=== PATIENT | female | born 1995 | race Caucasian/White ===

== ENCOUNTER 2019-02-20 16:39 | Outpatient (CLI) | payer OTHER ==
[2019-02-20 22:30] LABS: TRICHOMONAS VAGINALIS DNA NEGATIVE (NEGATIVE)
== END 2019-02-20 23:59 | disposition home or self-care (01) ==
LOC: LAB.R 16:39
PROVIDERS: ATTEND Registered Nurse
DX: Z30.430 Encounter for insertion of intrauterine contraceptive device (principal)
CPT/HCPCS: 87491; 87591; 87661

== ENCOUNTER 2020-04-18 05:47 | Emergency (ER) | payer OTHER ==
[2020-04-18 06:05] LABS: BILIRUBIN,URINE NEGATIVE (NEGATIVE); GLUCOSE, URINE (UA) NEGATIVE (NEGATIVE); KETONES,URINE (UA) NEGATIVE (NEGATIVE); LEUKOCYTE ESTERASE, URINE NEGATIVE (NEGATIVE); NITRITE,URINE NEGATIVE (NEGATIVE); OCCULT BLOOD,URINE MODERATE (NEGATIVE); PH,URINE 5.5 PH (5.0-7.5); PROTEIN,URINE NEGATIVE (NEGATIVE); UROBILINOGEN,URINE 0.2 (NORMAL) E.U./dL (NORMAL)
[2020-04-18 06:06] LABS: CLARITY,URINE CLEAR (CLEAR)
[2020-04-18 06:14] LABS: BACTERIA,URINE Rare /HPF (None Seen); MUCUS,URINE Marked Strands; SQUAMOUS EPITHELIAL CELL,UR MOD Squamous (<= Few)
[2020-04-18] MEDS ORDERED: KETOROLAC 30 MG/ML VIAL IVP STA (06:18)
[2020-04-18] MEDS ORDERED: HYDROmorphone 2 MG/ML VIAL IVP STA (06:22)
[2020-04-18] MEDS ORDERED: ONDANSETRON 4 MG/2 ML VIAL IVP STA (06:23)
[2020-04-18 06:30] LABS: BASOPHILS # (AUTO) 0.1 10^3/uL (0.0-0.1); BASOPHILS % (AUTO) 0.5 %; EOSINOPHILS # (AUTO) 0.1 10^3/uL (0.0-0.7); EOSINOPHILS % (AUTO) 1.2 %; HGB - HEMOGLOBIN 13.7 g/dL (12.0-16.0); LYMPHOCYTES % (AUTO) 19.5 %; MEAN CORPUSCULAR HEMOGLOBIN 30.7 pg (27.0-31.0); MEAN CORPUSCULAR HGB CONC 33.9 g/dL (32.0-36.0); MEAN CORPUSCULAR VOLUME 90.6 fL (81.0-99.0); MEAN PLATELET VOLUME 9.8 fL (7.9-10.8); MONOCYTES # (AUTO) 0.7 10^3/uL (0.0-1.0); MONOCYTES % (AUTO) 6.6 %; NEUTROPHILS # (AUTO) 7.2 10^3/uL (1.5-6.6); NEUTROPHILS % (AUTO) 71.9 %; PLT - PLATELET COUNT 320 10^3/uL (130-450); RED BLOOD COUNT 4.46 10^6/uL (4.20-5.40); RED CELL DISTRIBUTION WIDTH 12.6 % (12.0-15.0); WHITE BLOOD COUNT 10.1 x10^3/uL (4.8-10.8)
[2020-04-18 06:42] LABS: ALBUMIN 4.7 g/dL (3.2-5.5); ALBUMIN/GLOBULIN RATIO 1.4 (1.0-2.2); BILIRUBIN,TOTAL 0.6 mg/dL (0.2-1.0); CALCIUM 9.4 mg/dL (8.5-10.3); CREATININE 0.8 mg/dL (0.4-1.0)
--- NOTE | 2020-04-18 07:10 | ED Physician Documentation ---
PD HPI ABD PAIN - Stated complaint Stated Complaint: FLANK PX - Chief complaint Chief Complaint: Abd Pain - History obtained from History obtained from: Patient PD PAST MEDICAL HISTORY - Past Medical History Past Medical History: Yes Psych: Anxiety - Past Surgical History Past Surgical History: No - Allergies Allergies/Adverse Reactions: Allergies Allergy/AdvReac Type Severity Reaction Status Date / Time No Known Drug Allergies Allergy Verified 04/18/20 05:53 - Social History Does the pt smoke?: No Smoking Status: Never smoker Does the pt drink ETOH?: No Does the pt have substance abuse?: No - Immunizations Immunizations are current?: Yes - POLST Patient has POLST: No Results - Vitals Vitals: Vital Signs - 24 hr 04/18/20 04/18/20 05:53 06:57 Temperature 36.7 C Heart Rate 96 93 Respiratory 22 18 Rate Blood Pressure 131/78 H 121/74 O2 Saturation 98 98 Oxygen O2 Source Room air - Labs Labs: Laboratory Tests 04/18/20 04/18/20 04/18/20 05:55 06:20 06:20 WBC 10.1 RBC 4.46 Hgb 13.7 Hct 40.4 MCV 90.6 MCH 30.7 MCHC 33.9 RDW 12.6 Plt Count 320 MPV 9.8 Neut # (Auto) 7.2 H Lymph # (Auto) 2.0 [place] # (Auto) 0.7 Eos # (Auto) 0.1 Baso # (Auto) 0.1 Absolute Nucleated RBC 0.00 Nucleated RBC % 0.0 Sodium 138 Potassium 3.5 Chloride 105 Carbon Dioxide 23 Anion Gap 10.0 BUN 13 Creatinine 0.8 Estimated GFR (MDRD) 89 Glucose 114 H Calcium 9.4 Total Bilirubin 0.6 AST 20 ALT 23 Alkaline Phosphatase 49 Total Protein 8.0 Albumin 4.7 Globulin 3.3 Albumin/Globulin Ratio 1.4 Lipase 28 Urine Color YELLOW Urine Clarity CLEAR Urine pH 5.5 Ur Specific [place] >=1.030 H Urine Protein NEGATIVE Urine Glucose (UA) NEGATIVE Urine Ketones NEGATIVE Urine Occult Blood MODERATE H Urine Nitrite NEGATIVE Urine Bilirubin NEGATIVE Urine Urobilinogen 0.2 (NORMAL) Ur Leukocyte Esterase NEGATIVE Urine RBC 6-10 H Urine WBC 0-3 Ur Squamous Epith Cells MOD Squamous H Urine Bacteria Rare Urine Mucus Marked Strands Urine Culture Comments NOT INDICATED
--- NOTE | 2020-04-18 07:23 | ED Physician Documentation ---
PD HPI ABD PAIN - Stated complaint Stated Complaint: FLANK PX - Chief complaint Chief Complaint: Abd Pain - History obtained from History obtained from: Patient - History of Present Illness Timing - onset: Yesterday Timing - details: Abrupt onset, Intermittant Pain level now: 8 Quality: Pain Location: LLQ Radiation: Left flank Improved by: Other (nothing) Worsened by: Other (no exacerbating factors) Associated symptoms: Nausea, Vomiting. No: Fever, Diarrhea, Constipation Similar symptoms before: Has not had sx before Recently seen: Not recently seen - Additional information Additional information: c/o left flank pain that started yesterday morning, sudden onset, associated with nausea and vomiting. The pain eventually resolved without apparent ameliorating factors, but it reoccurred this morning with nausea and vomiting. Denies h/o similar symptoms Review of Systems Constitutional: denies: Fever, Chills, Sweats Cardiac: reports: Reviewed and negative Respiratory: reports: Reviewed and negative GI: reports: Abdominal Pain, Nausea, Vomiting. denies: Abdominal Swelling, Constipation, Diarrhea : denies: Dysuria, Frequency, Hematuria, Now EGA Skin: denies: Rash Musculoskeletal: denies: Back pain PD PAST MEDICAL HISTORY - Past Medical History Past Medical History: Yes Psych: Anxiety - Past Surgical History Past Surgical History: No - Present Medications Home Medications: Ambulatory Orders Medication Instructions Recorded Confirmed Hydrocodone/Acetaminophen 1 - 2 each PO Q6H PRN #14 tablet 04/18/20 [Hydrocodon-Acetaminophen 5-325] Ondansetron Odt [Zofran] 4 mg TL Q6H PRN #10 tablet 04/18/20 - Allergies Allergies/Adverse Reactions: Allergies Allergy/AdvReac Type Severity Reaction Status Date / Time No Known Drug Allergies Allergy Verified 04/18/20 05:53 - Social History Does the pt smoke?: No Smoking Status: Never smoker Does the pt drink ETOH?: No Does the pt have substance abuse?: No - Immunizations Immunizations are current?: Yes - POLST Patient has POLST: No PD ED PE NORMAL - Vitals Vital signs reviewed: Yes - General General: Alert and oriented X 3, Well developed/nourished, Other (appears uncomfortable due to painful distress, standing at bedside, shifting positions to try to get comfortable) - HEENT HEENT: Moist mucous membranes - Cardiac Cardiac: RRR, No murmur - Respiratory Respiratory: No respiratory distress, Clear bilaterally - Abdomen Abdomen: Normal bowel sounds, Soft, Non tender, Non distended - Back Back: No CVA TTP - Derm Derm: No rash Results - Vitals Vitals: Vital Signs - 24 hr 04/18/20 04/18/20 04/18/20 05:53 06:57 08:00 Temperature 36.7 C 37.1 C Heart Rate 96 93 97 Respiratory 22 18 18 Rate Blood Pressure 131/78 H 121/74 112/73 O2 Saturation 98 98 100 Oxygen O2 Source Room air - Labs Labs: Laboratory Tests 04/18/20 04/18/20 04/18/20 05:55 05:55 06:20 WBC 10.1 RBC 4.46 Hgb 13.7 Hct 40.4 MCV 90.6 MCH 30.7 MCHC 33.9 RDW 12.6 Plt Count 320 MPV 9.8 Neut # (Auto) 7.2 H Lymph # (Auto) 2.0 [place] # (Auto) 0.7 Eos # (Auto) 0.1 Baso # (Auto) 0.1 Absolute Nucleated RBC 0.00 Nucleated RBC % 0.0 Sodium Potassium Chloride Carbon Dioxide Anion Gap BUN Creatinine Estimated GFR (MDRD) Glucose Calcium Total Bilirubin AST ALT Alkaline Phosphatase Total Protein Albumin Globulin Albumin/Globulin Ratio Lipase Urine Color YELLOW Urine Clarity CLEAR Urine pH 5.5 Ur Specific [place] >=1.030 H >=1.030 H Urine Protein NEGATIVE Urine Glucose (UA) NEGATIVE Urine Ketones NEGATIVE Urine Occult Blood MODERATE H Urine Nitrite NEGATIVE Urine Bilirubin NEGATIVE Urine Urobilinogen 0.2 (NORMAL) Ur Leukocyte Esterase NEGATIVE Urine RBC 6-10 H Urine WBC 0-3 Ur Squamous Epith Cells MOD Squamous H Urine Bacteria Rare Urine Mucus Marked Strands Urine Culture Comments NOT INDICATED Urine HCG, Qual NEGATIVE 04/18/20 06:20 WBC RBC Hgb Hct MCV MCH MCHC RDW Plt Count MPV Neut # (Auto) Lymph # (Auto) [place] # (Auto) Eos # (Auto) Baso # (Auto) Absolute Nucleated RBC Nucleated RBC % Sodium 138 Potassium 3.5 Chloride 105 Carbon Dioxide 23 Anion Gap 10.0 BUN 13 Creatinine 0.8 Estimated GFR (MDRD) 89 Glucose 114 H Calcium 9.4 Total Bilirubin 0.6 AST 20 ALT 23 Alkaline Phosphatase 49 Total Protein 8.0 Albumin 4.7 Globulin 3.3 Albumin/Globulin Ratio 1.4 Lipase 28 Urine Color Urine Clarity Urine pH Ur Specific [place] Urine Protein Urine Glucose (UA) Urine Ketones Urine Occult Blood Urine Nitrite Urine Bilirubin Urine Urobilinogen Ur Leukocyte Esterase Urine RBC Urine WBC Ur Squamous Epith Cells Urine Bacteria Urine Mucus Urine Culture Comments Urine HCG, Qual - Rads (name of study) CT A/P Radiology: Prelim report reviewed, See rad report PD MEDICAL DECISION MAKING - ED course Complexity details: reviewed results, re-evaluated patient, considered differential, d/w patient ED course: reevaluated after IV fluids, zofran, dilaudid, and toradol. She is in NAD and reports good symptom relief with these medications. Hematuria on UA (patient says she is not currently menstruating) and calcification on CT s/o left UVJ stone although does not appear to be associated with hydronephrosis or hydroureter, possibly phlebolith. H+P and test results suggest renal colic despite lack of hydronephrosis/hydroureter; no other emergent/concerning findings at this time. Departure - Departure Disposition: 01 Home, Self Care Clinical Impression: Renal colic Condition: Good Instructions: ED Stone Renal W Colic Prescriptions: Hydrocodone/Acetaminophen [Hydrocodon-Acetaminophen 5-325] 1 - 2 each PO Q6H PRN #14 tablet PRN Reason: pain Ondansetron Odt [Zofran] 4 mg TL Q6H PRN #10 tablet PRN Reason: Nausea / Vomiting
[2020-04-18 07:25] LABS: HCG UR QUAL NEGATIVE
--- NOTE | 2020-04-18 08:25 | CT Report ---
PROCEDURE: Abdomen/Pelvis WO INDICATIONS: left flank pain TECHNIQUE: Noncontrast 5 mm thick sections acquired from the diaphragms to the symphysis. 5 mm coronal and sagi ttal reformats were then performed. For radiation dose reduction, the following was used: automated exposure control, adjustment of mA and/or kV according to patient size. COMPARISON: None. FINDINGS: Image quality: Excellent. ABDOMEN: Lung bases: Lung bases are clear. Heart size is normal. Solid organs: Liver and spleen are normal in size. Gallbladder is unremarkable Pancreas is normal in contours. No adrenal nodules. Kidneys are normal in size, without hydronephrosis or nephrolithia sis. There is a 4 mm calcification in the left pelvis at the base of the bladder on image 122/3 which may potentially represent a nonobstructing distal left ureteral stone versus phlebolith. Peritoneum and bowel: Unenhanced bowel loops demonstrate normal wall thickness and caliber. No free fluid or air. Nodes and vessels: No retroperitoneal or mesenteric adenopathy by size criteria. Aorta and inferior vena cava are normal in caliber. Miscellaneous: No ventral hernias. PELVIS: Genitourinary: Bladder wall thickness is normal. Miscellaneous: No inguinal hernias or adenopathy. IUD in place. Bones: No suspicious bony lesions. No vertebral body compression fractures. IMPRESSION: 1. Question 4 mm nonobstructing distal left ureteral stone versus phlebolith. No left hydronephrosis. Suggest clinical correlation. Reviewed by: Gabino Mcdaniels MD on 04/18/2020 8:24 AM PDT Approved by: Gabino Mcdaniels MD on 04/18/2020 8:24 AM PDT Station ID: [id number]
[2020-04-18 09:22] VITALS: BP 112/73
== END 2020-04-18 09:47 | disposition home or self-care (01) ==
LOC: ED 05:47
DX: N20.1 Calculus of ureter (principal)
CPT/HCPCS: 36415; 74176; 80053; 81001; 81025; 83690; 85025; 96374; 99284; J1170; 81003; 87086